=== PATIENT | female | born 1970 | race Caucasian/White ===

== ENCOUNTER 2019-03-28 16:55 | Emergency (ER) | payer OTHER ==
--- NOTE | 2019-03-28 17:57 | ER ---
Nurse's Notes [facility] Name: Lisa Brothers Age: 48 yrs Sex: Female : 1970 Arrival Date: 03/28/2019 Time: 16:57 Bed 28 Private MD: Liz Swartz K Diagnosis: Acute serous otitis media;Influenza due to other identified influenza virus with unspecified type of pneumonia Presentation: 03/28 17:08 Presenting complaint: Patient states: She was seen at [facility] on Wednesday and aj1 diagnosed with the flu, she is still feeling well. Reports headache, cough, and ear pain. Transition of care: patient was not received from another setting of care. Onset of symptoms was 2018. Risk Assessment: Do you want to hurt yourself or someone else? Patient reports no desire to harm self or others. Initial Sepsis Screen: Does the patient meet any 2 criteria? No. Patient's initial sepsis screen is negative. Does the patient have a suspected source of infection? No. Patient's initial sepsis screen is negative. Care prior to arrival: None. 17:08 Method Of Arrival: Ambulatory aj 17:08 Acuity: ANTONIO 4 aj1 Triage Assessment: 17:11 General: Appears in no apparent distress. comfortable, Behavior is calm, cooperative, aj1 appropriate for age. Pain: Pain currently is 4 out of 10 on a pain scale. EENT: Reports nasal congestion nasal discharge. Neuro: Level of Consciousness is awake, alert, obeys commands. Cardiovascular: Patient's skin is warm and dry. Respiratory: Airway is patent Respiratory effort is even, unlabored, Respiratory pattern is regular, symmetrical. 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 - Social history:: Smoking status: Patient/guardian denies using tobacco. - Ebola Screening: : Patient denies travel to an Ebola-affected area in the 21 days before illness onset. Screenin:10 Abuse screen: Denies threats or abuse. Denies injuries from another. Nutritional rv screening: No deficits noted. Tuberculosis screening: No symptoms or risk factors identified. Fall Risk None identified. Assessment: 18:09 General: Appears in no apparent distress. uncomfortable, Behavior is calm, cooperative. rv Pain: Complains of pain in right ear. Neuro: Level of Consciousness is awake, alert, obeys commands, Oriented to person, place, time, situation. Cardiovascular: Patient's skin is warm and dry. EENT: RIGHT EAR, RED.. Vital Signs: 17:11 BP 114 / 69; Pulse 78; Resp 18; Temp 97.3; Pulse Ox 98% on R/A; Weight 80.74 kg (R); aj1 Height 5 ft. 4 in. (162.56 cm) (R); Pain 4/10; 17:11 Body Mass Index 30.55 (80.74 kg, 162.56 cm) aj1 ED Course: 16:57 Patient arrived in ED. as 16:57 Liz Swartz MD is Private Physician. as 17:10 Triage completed. aj1 17:11 Arm band placed on Patient placed in waiting room, Patient notified of wait time. aj1 17:39 Minerva Carroll [facility]-C [facility]. snw 17:39 Glenroy Reeves MD is Attending Physician. snw 17:55 Liz Swartz MD is Referral Physician. snw 18:03 Qasim Kuhn, TAYLOR is Primary Nurse. rv 18:10 Patient has correct armband on for positive identification. rv 18:11 No provider procedures requiring assistance completed. Patient did not have IV access rv during this emergency room visit. Administered Medications: 18:08 Drug: Pepcid 20 mg Route: PO; rv 18:11 Follow up: Response: Medication administered at discharge. rv 18:08 Drug: Zithromax 500 mg Route: PO; rv 18:11 Follow up: Response: Medication administered at discharge. rv 18:09 Drug: predniSONE 40 mg Route: PO; rv 18:11 Follow up: Response: Medication administered at discharge. rv Outcome: 17:56 Discharge ordered by . snw 18:11 Discharged to home ambulatory, with family. rv 18:11 Condition: good 18:11 Discharge instructions given to patient, Instructed on discharge instructions, follow up and referral plans. medication usage, Demonstrated understanding of instructions, follow-up care, medications, Prescriptions given X 3. 18:12 Patient left the ED. rv Signatures: Bernice Tran, RN RN aj1 Minerva Carroll, MENTAL HEALTH COUNSELOR-C MENTAL HEALTH COUNSELOR-Csnw Triny Hylton Ronaldo, RN RN rv
--- NOTE | 2019-03-28 17:57 | EDPHYS ---
Physician Documentation [facility] Name: Lisa Brothers Age: 48 yrs Sex: Female : 1970 Arrival Date: 03/28/2019 Time: 16:57 Bed 28 Private MD: Liz Swartz K ED Physician Glenroy Reeves HPI: 03/28 18:49 This 48 yrs old Female presents to ER via Ambulatory with complaints of Ear snw Pain - Flu +. 18:49 The patient presents with pain, moderate. The complaints affect the left ear. Onset: snw The symptoms/episode began/occurred suddenly. Associated signs and symptoms: Pertinent positives: fever, sore throat. Severity of symptoms: At their worst the symptoms were moderate. The patient has been recently seen by a physician: Pt flu positive, taking tamiflu, phenergan dm, and albuterol. 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 - Social history:: Smoking status: Patient/guardian denies using tobacco. - Ebola Screening: : Patient denies travel to an Ebola-affected area in the 21 days before illness onset. ROS: 18:48 Eyes: Negative for injury, pain, redness, and discharge. snw 18:48 Neck: Negative for injury, pain, and swelling, Cardiovascular: Negative for chest pain, palpitations, and edema. 18:48 Back: Negative for injury and pain, MS/Extremity: Negative for injury and deformity, Skin: Negative for injury, rash, and discoloration, Neuro: Negative for headache, weakness, numbness, tingling, and seizure, Psych: Negative for depression, anxiety, suicide ideation, homicidal ideation, and hallucinations. 18:48 Constitutional: Positive for body aches, malaise, poor PO intake. 18:48 ENT: Positive for ear pain. 18:48 Respiratory: Positive for cough. Exam: 18:46 Constitutional: This is a well developed, well nourished patient who is awake, alert, snw and in no acute distress. Head/Face: Normocephalic, atraumatic. ENT: Nares patent. No nasal discharge, no septal abnormalities noted. Tympanic membranes are normal and external auditory canals are clear. Oropharynx with no redness, swelling, or masses, exudates, or evidence of obstruction, uvula midline. Mucous membranes moist. Neck: Trachea midline, no thyromegaly or masses palpated, and no cervical lymphadenopathy. Supple, full range of motion without nuchal rigidity, or vertebral point tenderness. No Meningismus. Chest/axilla: Normal chest wall appearance and motion. Nontender with no deformity. No lesions are appreciated. Cardiovascular: Regular rate and rhythm with a normal S1 and S2. No gallops, murmurs, or rubs. Normal PMI, no JVD. No pulse deficits. Respiratory: Lungs have equal breath sounds bilaterally, clear to auscultation and percussion. No rales, rhonchi or wheezes noted. No increased work of breathing, no retractions or nasal flaring. Deep bronchitic cough noted Abdomen/GI: Soft, non-tender, with normal bowel sounds. No distension or tympany. No guarding or rebound. No evidence of tenderness throughout. Back: No spinal tenderness. No costovertebral tenderness. Full range of motion. Skin: Warm, dry with normal turgor. Normal color with no rashes, no lesions, and no evidence of cellulitis. MS/ Extremity: Pulses equal, no cyanosis. Neurovascular intact. Full, normal range of motion. Neuro: Awake and alert, GCS 15, oriented to person, place, time, and situation. Cranial nerves II-XII grossly intact. Motor strength 5/5 in all extremities. Sensory grossly intact. Cerebellar exam normal. Normal gait. Psych: Awake, alert, with orientation to person, place and time. Behavior, mood, and affect are within normal limits. Vital Signs: 17:11 BP 114 / 69; Pulse 78; Resp 18; Temp 97.3; Pulse Ox 98% on R/A; Weight 80.74 kg (R); aj1 Height 5 ft. 4 in. (162.56 cm) (R); Pain 4/10; 17:11 Body Mass Index 30.55 (80.74 kg, 162.56 cm) aj1 MDM: 17:44 Patient medically screened. snw 18:47 Data reviewed: vital signs, nurses notes. Data interpreted: Pulse oximetry: on room air snw is 98 %. Interpretation: normal. Counseling: I had a detailed discussion with the patient and/or guardian regarding: the historical points, exam findings, and any diagnostic results supporting the discharge/admit diagnosis, the need for outpatient follow up, to return to the emergency department if symptoms worsen or persist or if there are any questions or concerns that arise at home. Special discussion: Based on the history and exam findings, there is no indication for further emergent testing or inpatient evaluation. I discussed with the patient/guardian the need to see the primary care provider for further evaluation of the symptoms. 18:48 ED course: to continue current medications. snw Administered Medications: 18:08 Drug: Pepcid 20 mg Route: PO; rv 18:11 Follow up: Response: Medication administered at discharge. rv 18:08 Drug: Zithromax 500 mg Route: PO; rv 18:11 Follow up: Response: Medication administered at discharge. rv 18:09 Drug: predniSONE 40 mg Route: PO; rv 18:11 Follow up: Response: Medication administered at discharge. rv Disposition: 19:41 Co-signature as Attending Physician, Glenroy Reeves MD. rn Disposition: 03/28/19 17:56 Discharged to Home. Impression: Acute serous otitis media, Influenza due to other identified influenza virus with unspecified type of pneumonia. - Condition is Stable. - Discharge Instructions: Otitis Media, Adult, Influenza, Adult, Community-Acquired Pneumonia, Adult, Rehydration, Adult. - Prescriptions for Prednisone 20 mg Oral Tablet - take 2 tablet by ORAL route once daily for 5 days; 10 tablet. Pepcid 20 mg Oral Tablet - take 1 tablet by ORAL route once daily; 20 tablet. Zithromax 500 mg Oral Tablet - take 1 tablet by ORAL route once daily for 5 days; 5 tablet. - Medication Reconciliation Form, Thank You Letter, Antibiotic Education, Prescription Opioid Use form. - Follow up: Liz Swartz MD; When: 2 - 3 days; Reason: Recheck today's complaints, Continuance of care, Re-evaluation by your physician. Follow up: Emergency Department; When: As needed; Reason: Worsening of condition. Signatures: Bernice Tran, RN RN aj1 Minerva Carroll, INVESTIGATION DIVISION CAPTAIN-C INVESTIGATION DIVISION CAPTAIN-Csnw Glenroy Reeves MD MD rn Qasim Kuhn RN RN rv Corrections: (The following items were deleted from the chart) 18:12 17:56 03/28/2019 17:56 Discharged to Home. Impression: Acute serous otitis media; rv Influenza due to other identified influenza virus with unspecified type of pneumonia. Condition is Stable. Forms are Medication Reconciliation Form, Thank You Letter, Antibiotic Education, Prescription Opioid Use. Follow up: Liz Swartz; When: 2 - 3 days; Reason: Recheck today's complaints, Continuance of care, Re-evaluation by your physician. Follow up: Emergency Department; When: As needed; Reason: Worsening of condition. snw
[2019-03-28] MEDS ORDERED: AZITHROMYCIN 250 MG TAB ONE (18:07)
[2019-03-28] MEDS ORDERED: FAMOTIDINE 20 MG TAB ONE (18:07)
[2019-03-28] MEDS ORDERED: predniSONE 20 MG TAB ONE (18:07)
[2019-03-28 18:28] VITALS: BP 114/69; TEMP 97.3; O2SAT 98
== END 2019-03-28 18:12 | disposition home or self-care (01) ==
LOC: ER 16:55
DX: H65.02 Acute serous otitis media, left ear (principal); J10.00 Influenza due to other identified influenza virus with unspecified type of pneumonia; E03.9 Hypothyroidism, unspecified
CPT/HCPCS: 99283; J7512